=== PATIENT | male | born 2000 | race Caucasian/White ===

== ENCOUNTER 2022-01-26 13:26 | Outpatient (CLI) | payer BC | END 2022-01-26 13:27 | disposition home or self-care (01) | LOC: CSHMRI 13:26 | PROVIDERS: ATTEND Family Medicine | DX: R51.9 Headache, unspecified (principal); J32.8 Other chronic sinusitis | CPT/HCPCS: 70551 ==

== ENCOUNTER 2022-10-05 12:41 | Outpatient (CLI) | payer BC | END 2022-10-05 12:42 | disposition home or self-care (01) | LOC: CSHRAD 12:41 | PROVIDERS: ATTEND Family Medicine | DX: M54.50 Low back pain, unspecified (principal) | CPT/HCPCS: 72100 ==

== ENCOUNTER 2022-10-26 09:26 | Outpatient (CLI) | payer BC ==
[2022-10-26] MEDS ORDERED: Iopamidol 370 76% 50 ML VIAL FS ONE (09:30)
== END 2022-10-26 09:27 | disposition home or self-care (01) ==
LOC: CSHCT 09:26
PROVIDERS: ATTEND Family Medicine
DX: R10.9 Unspecified abdominal pain (principal)
CPT/HCPCS: 74178; Q9967